=== PATIENT | female | born 1950 | race Caucasian/White ===

== ENCOUNTER → 2017-11-17 17:32 | Outpatient (CLI) | payer MEDICARE, SELFPAY | PROVIDERS: Visit Provider Physician Assistant | DX: N30.01 Acute cystitis with hematuria (principal) | CPT/HCPCS: 87077; 87086; 87186 ==

== ENCOUNTER 2018-11-19 14:09 | Emergency (ER) | payer MEDICARE, SELFPAY ==
[2018-11-19 14:14] VITALS: BP 96/56; PULSE 60; RESP 15; TEMP 37.2; O2SAT 94
[2018-11-19 14:39] LABS: Add Manual Diff / Slide Review NO; Basophils Absolute Auto 100 /uL (0-100); Basophils Percent Auto 1.1 % (0-2); Eosinophils Absolute Auto 200 /uL (0-450); Eosinophils Percent Auto 2.9 % (2-4); Hematocrit 34.5 % (36-46); Hemoglobin 11.8 g/dL (12.0-16.0); Lymphocytes Absolute Auto 1800 /uL (1100-4500); Lymphocytes Percent Auto 23.9 % (25-40); Mean Corpuscular HGB Conc 34.3 % (30-36); Mean Corpuscular Hemoglobin 31.5 PG (26-34); Mean Corpuscular Volume 91.8 fL (80-100); Monocytes Absolute Auto 400 /uL (0-900); Monocytes Percent Auto 6.1 % (3-14); Neutrophils Absolute Auto 4900 /uL (1500-7000); Platelet Count 206 X10^3/uL (150-400); Red Blood Cell Count 3.76 X10^6/uL (4.0-5.2); Red Cell Distribution Width 13.9 % (11.6-14.8); White Blood Cell Count 7.3 X10^3/uL (4.5-11.0)
[2018-11-19 14:41] LABS: D Dimer 255 ng/mL (<230)
[2018-11-19 14:42] LABS: Alanine Aminotransferase 9 IU/L (9-52); Albumin 3.7 g/dL (3.5-5.0); Albumin Globulin Ratio 1.3 (1.0-2.8); Alkaline Phosphatase 66 U/L (38-126); Aspartate Aminotransferase 16 IU/L (14-36); BUN Creatinine Ratio 27.8 (6-22); Bilirubin Total 0.4 mg/dL (0.2-1.3); Blood Urea Nitrogen 25 mg/dL (7-17); Calcium 8.9 mg/dL (8.4-10.2); Carbon Dioxide 26 mmol/L (22-32); Chloride 106 mmol/L (98-107); Creatine Kinase 59 U/L (30-135); Estimated Glomerular Filt Rate > 60.0 mL/min (>60); Globulin 2.9 g/dL (1.7-4.1); Glucose 118 mg/dL (80-110); HEMOLYSIS < 15 (0-50); Potassium 3.9 mmol/L (3.4-5.1); Sodium 140 mmol/L (137-145); Total Protein 6.6 g/dL (6.3-8.2)
[2018-11-19 14:51] LABS: B Type Natriuretic Peptide < 100 (<100)
[2018-11-19 14:53] LABS: Troponin I < 0.012 ng/mL (0.01-0.034)
[2018-11-19 14:59] VITALS: BP 89/56; PULSE 49; RESP 12; O2SAT 95
--- NOTE | 2018-11-19 14:59 | ED.SYNCOPE ---
HPI - Syncope General Chief Complaint: Syncope Stated Complaint: Syncopal episode Time Seen by Provider: 11/19/18 14:11 Source: patient, family and EMS Mode of arrival: EMS Limitations: no limitations History of Present Illness HPI narrative: 68-year-old female nonsmoker with history of depression, anxiety, and syncope presents by EMS for evaluation of a syncopal episode this morning. She was standing at a counter at a local [employer] for 5-7 minutes when she started feeling bit dizzy, weak and lightheaded. She then had a syncopal episode and fell to the ground. She denies any injury as a consequence of the fall. On arrival of the paramedics found her blood pressure to be in the 60s with a heart rate in the 40s. She denies any new medications, diet or street drugs. She has not been recently ill and denies nausea, vomiting or diarrhea. She has had no dysuria, frequency or urgency. Patient states that she frequently becomes dehydrated especially when she travels. She nearly always has water bottles at her side but has been unable for the past few days. It was very hot and humid in [place] when she thinks her symptoms started and then she does not drink while flying because she has to get up and urinate too often. complaint: loss of consciousness and collapsed Onset (ago): minute(s) -: second(s) Prodromal symptoms: lightheaded Witnessed: yes - by bystander Injuries sustained associated with event: none Current symptoms: none History: previous syncopal episode Treatments prior to arrival: IV fluids Related Data Home Medications Medication Instructions Recorded Confirmed [IODINE PLUS-2 ] OR QDAY #0 01/08/16 10/06/17 [Tumeric] PRN PRN #0 01/08/16 10/06/17 cholecalciferol (vitamin D3) 1,000 unit PO QDAY #0 tab 01/08/16 10/06/17 [Vitamin D3] melatonin 5 mg OR HS #0 01/08/16 10/06/17 multivitamin [Multiple Vitamins] 1 tab PO QDAY #0 tab 01/08/16 10/06/17 vitamin B complex [B 1 tab PO QDAY #0 tab 01/08/16 10/06/17 Complex-Vitamin B12] citalopram 20 mg PO DAILY 11/19/18 11/19/18 clonazepam 0.5 mg PO DAILY PRN 11/19/18 11/19/18 olanzapine 10 mg PO DAILY 11/19/18 11/19/18 Allergies Allergy/AdvReac Type Severity Reaction Status Date / Time clonidine [CLONIDINE] AdvReac Unknown syncope Verified 11/17/17 16:55 Review of Systems Constitutional Denies chills, Denies fever(s), Denies lethargy and Denies weakness Eyes Denies change in vision, Denies eye discharge, Denies irritation and Denies loss of vision ENT Ears, Nose, Mouth, and Throat: Denies change in voice, Denies neck pain and Denies sore throat Cardiovascular Denies chest pain, Reports syncope, Denies irregular heart rhythm, Denies lightheadedness, Denies palpitations, Denies dyspnea, Denies dyspnea on exertion and Denies orthopnea Respiratory Denies cough, Denies dyspnea, Denies dyspnea on exertion and Denies wheezing Gastrointestinal Gastrointestinal: Denies abdominal pain, Denies change in bowel habits, Denies diarrhea, Denies nausea and Denies vomiting Genitourinary Denies hematuria, Denies flank pain, Denies urinary incontinence and Denies urinary urgency Musculoskeletal Denies neck pain Integumentary/Breasts Denies pruritus, Denies erythema, Denies rash and Denies wounds Neurologic Denies confusion, Reports syncope, Denies loss of vision and Denies weakness Psychiatric Denies anxiety, Denies confusion, Denies depression, Denies homicidal ideation and Denies suicidal ideation Endocrine Denies palpitations Hematologic/Lymphatic Denies easy bruising Allergic/Immunologic Denies wheezing PFSH Social History Smoking Status: Never smoker substance use type: marijuana (Used for anxiety and sleep Has medical marijuana card ) Social History Smoking Status: Never smoker substance use type: marijuana (Used for anxiety and sleep Has medical marijuana card ) Exam Narrative Exam Narrative: GENERAL: 68-year-old female appears stated age, she clearly does not feel well HEAD: Atraumatic. Normocephalic. No temporal or scalp tenderness. EYES: Pupils equal round and reactive. Extraocular motions intact. No scleral icterus. No injection or drainage. ENT: Dry mucous membranes Nose without bleeding, purulent drainage or septal hematoma. Throat without erythema, tonsillar hypertrophy or exudate. Uvula midline. Airway patent. NECK: Trachea midline. No JVD or lymphadenopathy. Supple, nontender, no meningeal signs. CARDIOVASCULAR: Regular rate and rhythm without murmurs, gallops, or rubs. RESPIRATORY: Clear to auscultation. Breath sounds equal bilaterally. No wheezes, rales, or rhonchi. GASTROINTESTINAL: Abdomen soft, non-tender, nondistended. No hepato-splenomegaly, or palpable masses. No guarding. EXTREMITIES: No clubbing, cyanosis, or edema. No joint tenderness, effusion, or edema noted. BACK: Nontender without deformity or crepitance. No flank tenderness. NEURO: AOx3. SKIN: No rash or erythema. Initial Vital Signs Initial Vital Signs: Vital Signs Temperature 98.9 F 11/19/18 14:14 Pulse Rate 60 11/19/18 14:14 Respiratory Rate 15 11/19/18 14:14 Blood Pressure 96/56 L 11/19/18 14:14 Pulse Oximetry 94 11/19/18 14:14 Course Orders Ordered: ED Orders 11/19/18 14:21 B Type Natriuretic Peptide Stat Complete Blood Count AUTO DIFF Stat Comprehensive Metabolic Panel Stat D Dimer Stat Troponin & CK Cardiac Panel Stat 11/19/18 15:01 EKG-12 Lead Stat Discontinued Medications Sodium Chloride (Normal Saline 0.9%) 1,000 mls @ 1,000 mls/hr IV BOLUS ONE Stop: 11/19/18 15:10 Last Infusion: 11/19/18 17:04 Dose: 0 mls/hr Admin: 11/19/18 15:56 Dose: 1,000 mls/hr Sodium Chloride (Normal Saline 0.9%) 1,000 mls @ 1,000 mls/hr IV BOLUS ONE Stop: 11/19/18 16:48 Last Admin: 11/19/18 16:01 Dose: Not Given Reevaluation(s) Reevaluation #1: Patient feels tremendous improvement after IV hydration Vital Signs - 8 hr 11/19/18 14:14 11/19/18 14:59 11/19/18 15:59 Temperature 98.9 F Pulse Rate 60 49 L Pulse Rate [Orthostatic Lying] 55 L Pulse Rate [Orthostatic Sitting] 56 L Pulse Rate [Orthostatic Standing] 52 L Respiratory Rate 15 12 Blood Pressure 96/56 L Blood Pressure [Orthostatic Lying] 97/55 L Blood Pressure [Orthostatic Sitting] 115/65 Blood Pressure [Orthostatic Standing] 121/70 Blood Pressure [Right Arm] 89/56 L Pulse Oximetry 94 95 11/19/18 17:08 Temperature Pulse Rate 54 L Pulse Rate [Orthostatic Lying] Pulse Rate [Orthostatic Sitting] Pulse Rate [Orthostatic Standing] Respiratory Rate 13 Blood Pressure 108/66 Blood Pressure [Orthostatic Lying] Blood Pressure [Orthostatic Sitting] Blood Pressure [Orthostatic Standing] Blood Pressure [Right Arm] Pulse Oximetry 97 MDM - Syncope Lab Data Result diagrams: 11/19/18 14:21 11/19/18 14:21 Lab Results 11/19/18 11/19/18 11/19/18 Range/Units 14:21 14:21 14:21 WBC 7.3 (4.5-11.0) X10^3/uL RBC 3.76 L (4.0-5.2) X10^6/uL Hgb 11.8 L (12.0-16.0) g/dL Hct 34.5 L (36-46) % MCV 91.8 (80-100) fL MCH 31.5 (26-34) PG MCHC 34.3 (30-36) % RDW 13.9 (11.6-14.8) % Plt Count 206 (150-400) X10^3/uL Neut % (Auto) 66.0 (50-75) % Lymph % (Auto) 23.9 L (25-40) % [place] % (Auto) 6.1 (3-14) % Eos % (Auto) 2.9 (2-4) % Baso % (Auto) 1.1 (0-2) % Neut # (Auto) 4900 (5835-2447) /uL Lymph # (Auto) 1800 (2980-9079) /uL [place] # (Auto) 400 (0-900) /uL Eos # (Auto) 200 (0-450) /uL Baso # (Auto) 100 (0-100) /uL D-Dimer 255 H (<230) ng/mL Sodium 140 (137-145) mmol/L Potassium 3.9 (3.4-5.1) mmol/L Chloride 106 (98-107) mmol/L Carbon Dioxide 26 (22-32) mmol/L BUN 25 H (7-17) mg/dL Creatinine 0.90 (0.52-1.04) mg/dL Estimated GFR > 60.0 (>60) mL/min BUN/Creatinine Ratio 27.8 H (6-22) Glucose 118 H (80-110) mg/dL Calcium 8.9 (8.4-10.2) mg/dL Total Bilirubin 0.4 (0.2-1.3) mg/dL AST 16 (14-36) IU/L ALT 9 (9-52) IU/L Alkaline Phosphatase 66 (38-126) U/L Total Creatine Kinase 59 (30-135) U/L CK-MB (CK-2) TNP CK-MB (CK-2) Rel Index TNP Troponin I < 0.012 (0.01-0.034) ng/mL B-Natriuretic Peptide < 100 (<100) Total Protein 6.6 (6.3-8.2) g/dL Albumin 3.7 (3.5-5.0) g/dL Globulin 2.9 (1.7-4.1) g/dL Albumin/Globulin Ratio 1.3 (1.0-2.8) MDM Narrative Medical decision making narrative: Multiple etiologies for patient's symptoms considered including: [Dehydration which is thought was likely given her story, history and response to fluids. Arrhythmia considered but thought less likely given how she eased into her symptoms. Pulmonary embolism and myocardial infarction considered but thought less likely given history and physical] Patient's symptoms improved or duration of stay with above-stated therapies. Findings and discharge diagnosis discussed with patient/family followed by verbalization of understanding Return precautions discussed with patient/family whom verbalize understanding. Discharge Plan Departure Patient Disposition: Home Clinical Impression: Acute dehydration Syncope Qualifiers: Syncope type: unspecified Qualified Code(s): R55 - Syncope and collapse Discharge Date/Time: 11/19/18 17:09 Interventions: ED Discharge Assessment Last Done: 11/19/18 17:08 Instructions: DI for Syncope in Adults (Fainting) Activity Restrictions/Additional Instructions: 1. Drink plenty of fluids with frequent small sips. 2. For the next 24 hours a clear liquid diet is advised. After that please employ a brat diet which would include bananas, rice, apples, toast. 3. Please take medications as directed. 4. Please follow-up with your doctor in the next 1-2 days. Call the office for an appointment. 5. Please return to the emergency Department for any worsening or persistent symptoms, such as increasing pain or fever. Prescriptions: No Action multivitamin [Multiple Vitamins] 1 EACH tablet 1 tab PO QDAY Qty: 0 RF: 0 cholecalciferol (vitamin D3) [Vitamin D3] 1,000 UNIT tablet 1,000 unit PO QDAY Qty: 0 RF: 0 vitamin B complex [B Complex-Vitamin B12] 1 EACH tablet 1 tab PO QDAY Qty: 0 RF: 0 melatonin 5 MG tablet 5 mg OR HS Qty: 0 RF: 0 [Tumeric] PRN PRNQty: 0 RF: 0 [IODINE PLUS-2 ] OR QDAY Qty: 0 RF: 0 olanzapine 10 mg tablet 10 mg PO DAILY RF: 0 citalopram 20 mg tablet 20 mg PO DAILY RF: 0 clonazepam 0.5 mg tablet 0.5 mg PO DAILY PRN (Reason: Anxiety) RF: 0
[2018-11-19] MEDS: SODIUM CHLORIDE 0.9% 1,000 ML 1000 ML IV (15:56)
[2018-11-19 15:59] VITALS: BP 115/65; BP 121/70; BP 97/55; PULSE 52; PULSE 55; PULSE 56
[2018-11-19 17:08] VITALS: BP 108/66; PULSE 54; RESP 13; O2SAT 97
== END 2018-11-19 17:09 | disposition home or self-care (01) ==
PROVIDERS: Emergency Provider Emergency Medicine
DX: E86.0 Dehydration (principal); R55 Syncope and collapse
CPT/HCPCS: 36415; 80053; 82550; 83880; 84484; 85025; 85379; 93005; 93010; 96360; 99283; 99284

== ENCOUNTER → 2019-11-28 11:24 | Outpatient (CLI) | payer MEDICARE, SELFPAY ==
[2019-11-28 12:53] LABS: Thyroid Stimulating Hormone 1.67 uIU/mL (0.47-4.68)
[2019-11-29 15:27] LABS: Cholesterol 227 mg/dL (140-199); HDL Cholesterol 47 mg/dL (40-60); LDL Cholesterol Calculated 158 mg/dL (<100); Triglycerides 108 mg/dL (35-150)
[2019-11-29 15:46] LABS: Free T4, Direct Thyroxine 0.92 ng/dL (0.78-2.19)
== END ==
PROVIDERS: Nurse Practitioner Psychiatric/Mental Health; Referring Provider Internal Medicine; Visit Provider Internal Medicine
DX: E78.5 Hyperlipidemia, unspecified (principal); F32.9 Major depressive disorder, single episode, unspecified; F43.10 Post-traumatic stress disorder, unspecified; Z51.81 Encounter for therapeutic drug level monitoring; Z79.899 Other long term (current) drug therapy
CPT/HCPCS: 36415; 80061; 84439; 84443